=== PATIENT | female | born 1950 | race Two or more races ===

== ENCOUNTER 2020-06-17 05:57 | Day surgery (SDC) | payer MEDICARE, BC ==
[~2020-06-17] VITALS: Ht 166.4 cm; Wt 56.7 kg
[2020-06-17] VITALS (10 sets, daily range): BP systolic 106–127; BP diastolic 62–75
[~2020-06-17 05:57] MED LIST: FOSAMAX70 MG ORAL; IMODIUM2 MG ORAL; PROBIOTIC1 EAC2 PO; STELARA45 MG/0.1 SQ; UNOBMED; ceFAZolin sod 1 GM in NS 55 ML IVPB SCH
[2020-06-17] MEDS ORDERED: Midazolam 2mg/2ml Inj ONE (07:08)
[2020-06-17] MEDS ORDERED: fentaNYL 100 mcg/2 mL IV ONE (07:08)
[2020-06-17] MEDS ORDERED: cefOXitin 1gm Inj ONE (07:14)
[2020-06-17] MEDS ORDERED: Lidocaine 1% MPF 10mg/ml 5ml ONE (07:20)
--- NOTE | 2020-06-17 07:29 | Anethesia Preoperative Eval ---
Anesthesia Pre-op PMH/ROS General Date of Evaluation: Jun 17, 2020 Time of Evaluation: 07:25 Anesthesiologist: Sameer ASA Score: ASA 2 Mallampati Score Class I : Soft palate, uvula, fauces, pillars visible Class II: Soft palate, uvula, fauces visible Class III: Soft palate, base of uvula visible Class IV: Only hard plate visible Mallampati Classification: Class II Surgeon: Alejandra Diagnosis: Endometrial hyperplasia Surgical Procedure: D&C Hysteroscopy Anesthesia History: none Family History: no anesthesia problems Allergies: Coded Allergies: No Known Allergies (Unverified , 01/26/14) Medications: see eMAR Patient NPO?: Yes Past Medical History Cardiovascular: Denies: HTN, CAD, [place], valve dz, arrhythmia, other Pulmonary: Denies: asthma, COPD, AZEB, other Gastrointestinal/Genitourinary: Reports: GERD; Denies: CRI, ESRD, other Neurologic/Psychiatric: Reports: depression/anxiety; Denies: dementia, CVA, TIA, other Endocrine: Denies: DM, hypothyroidism, steroids, other HEENT: Denies: cataract (L), cataract (R), glaucoma, [place] (L), [place] (R), other Hematology/Immune: Denies: anemia, DVT, bleeding disorder, other Musculoskeletal/Integumentary: Reports: OA; Denies: RA, DJD, DDD, edema, other PMH Narrative: as above PSxH Narrative: see H&P Anesthesia Pre-op Phys. Exam Physician Exam Last Vital Signs Date Time Temp Pulse Resp B/P (MAP) Pulse Ox O2 Delivery O2 Flow Rate FiO2 06/17/20 06:26 97.1 72 18 118/72 98 Room Air Constitutional: NAD Neurologic: CN 2-12 intact Cardiovascular: RRR, no M/R/G Respiratory: CTA Gastrointestinal: S/NT/ND Airway Exam Mallampati Score: Class II MO: full Neck: flexible ROM: limited Teeth: intact Dentures: no upper, no lower Anesthesia Pre-op A/P Labs see chart Studies Pre-op Studies: EKG - SR Risk Assessment & Plan Assessment: ASA 2 Plan: GA with LMA Status Change Before Surgery: No Pre-Antibiotics Drug: Cefoxitin 1gr Given Within 1 Hr of Incision: Yes Time Given: 08:12 Joby Estrella MD Jun 17, 2020 07:29
[2020-06-17] MEDS ORDERED: LR 1000ml ONE (07:30)
[2020-06-17] MEDS ORDERED: NS Irrig 1000ml ONE (07:30)
[2020-06-17] MEDS ORDERED: DiphenhydrAMINE 50mg/ml Inj IVP PRN (07:30)
[2020-06-17] MEDS ORDERED: LR 1000ml 1,000 ML IVLG SCH (07:30)
[2020-06-17] MEDS ORDERED: Ketorolac 30mg Inj IV PRN (07:30)
[2020-06-17] MEDS ORDERED: Sterile Water Irrig 1000ml IRRIG ONE (07:30)
[2020-06-17] MEDS ORDERED: Hydromorphone 0.5mg/0.5ml inj IVP PRN (07:30)
[2020-06-17] MEDS ORDERED: Ropivacaine 5mg/ml Vial 30ml INJ ONE (07:31)
--- NOTE | 2020-06-17 07:42 | Pre-Procedure Note/Attestation ---
Pre-Procedure Note/Attestation Complete Prior to Procedure Planned Procedure: not applicable Procedure Narrative: D&C and hysteroscopy, possible polypectomy Indications for Procedure Pre-Operative Diagnosis: Endometrial hyperplasia Attestation I attest that I discussed the nature of the procedure; its benefits; risks and complications; and alternatives (and the risks and benefits of such alternatives), prior to the procedure, with the patient (or the patient's legal bilingual inside sales representative). I attest that, if there was a reasonable possibility of needing a blood transfusion, the patient (or the patient's legal bilingual inside sales representative) was given the [facility] standardized written summary, pursuant to the [place] Blood Safety Act ([place] Health and Safety Code # 1645, as amended). I attest that I re-evaluated the patient just prior to the surgery and that there has been no change in the patient's H&P, except as documented below: Robbie Robetrs MD Jun 17, 2020 07:42
[2020-06-17] MEDS ORDERED: Ketorolac 30mg Inj ONE (08:31)
[2020-06-17] MEDS ORDERED: Sorbitol 2000ml Irrigation IRRIG ONE (08:50)
--- NOTE | 2020-06-17 08:53 | Brief Operative Note ---
Immediate Post Operative Note Operative Note Pre-op Diagnosis: Endometrial hyperplasia Post-op Diagnosis: same as pre-op plus - Endometrial Myoma or Polyp Findings: consistent w/pre-op dx studies Surgeon: Robbie Roberts MD Anesthesiologist: Christoph Estrella MD Anesthesia: general Specimen: yes Complications: none Condition: stable Fluids: 1/2NS @100 ml / hr Estimated Blood Loss: minimal Drains: none Implant(s) used?: No Robbie Roberts MD Jun 17, 2020 08:53
--- NOTE | 2020-06-17 08:56 | Immediate Post-Op Evaluation ---
Immediate Post-Op Evalulation Immediate Post-Op Evalulation Procedure: D&C Hysteroscopy, excision of endometrial polyp Date of Evaluation: Jun 17, 2020 Time of Evaluation: 08:55 IV Fluids: 800 Blood Products: none Estimated Blood Loss: 50 Urinary Output: 100 Blood Pressure Systolic: 112 Blood Pressure Diastolic: 67 Pulse Rate: 65 Respiratory Rate: 20 O2 Sat by Pulse Oximetry: 99 Temperature (Fahrenheit): 97.4 Pain Score (1-10): 1 Nausea: No Vomiting: No Complications none Patient Status: reacts, patent, none Hydration Status: adequate Joby Estrella MD Jun 17, 2020 08:56
[2020-06-17] MEDS ORDERED: HYDROcodone/Acetamin 5/325 tab ORAL PRN (09:00)
[2020-06-17] MEDS ORDERED: HYDROmorphone 1mg/ml Carpuject SUBQ PRN (09:00)
[2020-06-17] MEDS ORDERED: D5 1/2NS 1,000 ML IV SCH (09:00)
[2020-06-17] MEDS ORDERED: Tylenol #3 tab (300mg/30mg) ORAL PRN (09:00)
--- NOTE | 2020-06-17 09:56 | 48 Hour Post Anesthesia Eval ---
Post Anesthesia Evaluation Procedure: D&C Hysteroscopy, excision of endometrial polyp Date of Evaluation: Jun 17, 2020 Time of Evaluation: 09:55 Blood Pressure Systolic: 122 0: 67 Pulse Rate: 72 Respiratory Rate: 20 Temperature (Fahrenheit): 97.6 O2 Sat by Pulse Oximetry: 98 Airway: patent Nausea: No Vomiting: No Pain Intensity: 2 Hydration Status: adequate Cardiopulmonary Status: stable Mental Status/LOC: patient returned to baseline Follow-up Care/Observations: n/a Post-Anesthesia Complications: none Follow-up care needed: ready to discharge Joby Estrella MD Jun 17, 2020 09:56
--- NOTE | 2020-06-17 16:29 | Operative Note - Dictated ---
DATE OF OPERATION: 06/17/2020 PREOPERATIVE DIAGNOSIS: Endometrial thickening, possible hyperplasia. POSTOPERATIVE DIAGNOSIS: Endometrial mass, myoma versus polyp. PROCEDURE PERFORMED: Video hysteroscopy, utilization of video resectoscope to perform transuterine removal of endometrial mass, likely transcervical myomectomy. SURGEON: Robbie Roberts MD ANESTHESIA: General. ANESTHESIOLOGIST: Joby Estrella MD PROCEDURE IN DETAIL: After all the appropriate consents were signed, the patient was brought to the operating room, placed on the table in supine position. General anesthesia was induced. Without anesthesia, LMA was placed. The patient was then placed in dorsal lithotomy position. Perineum, vagina, and abdomen were prepped and draped in the usual fashion for the procedure. The patient was then examined under anesthesia. The cervix was identified. The cervical os was now dilated after a single-tooth tenaculum was placed. The video hysteroscope was introduced and the endometrial cavity was visualized. There appeared to be a large mass occupying the posterior of the endometrial cavity. At this time, the resectoscope was introduced and the removal of the mass began. The mass was gradually reduced and portions of the mass were submitted to Pathology for evaluation where the mass was fully removed. The resectoscope was removed. The cavity was visualized and was found to be fully intact with the floor of the endometrium now being clear. At this time, the patient was once again evaluated. The single-tooth tenaculum was removed from the cervix and the patient was placed in the supine position. There was minimal blood loss throughout the procedure. The patient was brought to the recovery room in excellent condition. Robbie Roberts M.D. DR: Hyun JOB#: [id number] CC:
== END 2020-06-17 12:10 | disposition home or self-care (01) ==
LOC: SUR 05:57
DX: N85.00 Endometrial hyperplasia, unspecified (principal); K21.9 Gastro-esophageal reflux disease without esophagitis; M19.90 Unspecified osteoarthritis, unspecified site; F32.9 Major depressive disorder, single episode, unspecified; F41.9 Anxiety disorder, unspecified
CPT/HCPCS: 58563; 94003; J0694; J1885; J2250; J2704; J3010; J7120; 94150